=== PATIENT | male | born 1930 | race Caucasian/White ===

== ENCOUNTER 2018-08-13 06:26 | Inpatient (IN) | payer MEDICARE ==
[~2018-08-13] VITALS: Ht 185.4 cm; Wt 78.9 kg
[2018-08-13] MEDS ORDERED: SODIUM CHLORIDE 0.9% 1000ML 1,000 ML IV STA (06:29)
[2018-08-13] MEDS ORDERED: CEFTRIAXONE SOD 1 GM VIAL IV SCH (06:30)
[2018-08-13] MEDS: CEFTRIAXONE SOD 1 GM/NS 50 ML 50 ML IV SCH (06:57)
[2018-08-13 07:02] LABS: ALBUMIN/GLOBULIN RATIO 1.1 (0.8-2.0); ANION GAP 21.3 mmol/L (8-16); CALCIUM 9.9 mg/dL (8.4-10.2); CREATININE, SERUM 1.14 mg/dL (0.72-1.25); POTASSIUM 4.3 mmol/L (3.5-5.1)
[2018-08-13 07:08] LABS: CREATINE KINASE MB 5.2 ng/mL (0-5.0)
[2018-08-13] MEDS ORDERED: SODIUM CHLORIDE 0.9% 1000ML 1,000 ML ONE (07:09)
[2018-08-13 07:11] LABS: BASOPHILS # (AUTO) 0.1 (0.0-0.1); BASOPHILS % 0.2 % (0.0-1.0); EOSINOPHILS % 0.1 % (0.0-6.0); HEMATOCRIT 47.9 % (38.2-49.6); HEMOGLOBIN 15.9 g/dL (14.0-18.0); LYMPHOCYTES # (AUTO) 1.2 (1.0-3.2); LYMPHOCYTES % 5.5 % (18.0-39.1); MEAN CORPUSCULAR HEMOGLOBIN 29.6 pg (28-32); MEAN CORPUSCULAR HGB CONC 33.2 g/dL (31-35); MEAN CORPUSCULAR VOLUME 89.2 fL (81-99); MONOCYTES # (AUTO) 0.7 (0.2-0.8); MONOCYTES % 3.3 % (4.4-11.3); NEUTROPHILS # (AUTO) 19.7 (2.1-6.9); NEUTROPHILS % 90.3 % (38.7-80.0); PLATELET COUNT 294 x10e3/uL (140-360); RED BLOOD COUNT 5.37 x10e6/uL (4.3-5.7); RED CELL DISTRIBUTION WIDTH 13.5 % (11.7-14.4)
[2018-08-13] MEDS ORDERED: MORPHINE SULFATE INJ 4 MG/ML INJ IV ONE (07:15)
[2018-08-13] MEDS ORDERED: SODIUM CHLORIDE 0.9% 1000ML 1,000 ML IV ONE ×2 (07:15→08:45)
[2018-08-13] MEDS ORDERED: ONDANSETRON HCL INJ 2 MG/ML VIAL IV ONE (07:15)
[2018-08-13] MEDS ORDERED: LISINOPRIL2.5 MG PO (07:30)
[2018-08-13] MEDS ORDERED: TAMSULOSIN HCL0.4 MG PO (07:30)
[2018-08-13] MEDS ORDERED: FINASTERIDE5 MG PO (07:31)
[2018-08-13] MEDS ORDERED: METFORMIN HCL500 MG PO (07:31)
[2018-08-13] MEDS ORDERED: SPIRONOLACTONE25 MG PO (07:31)
[2018-08-13] MEDS ORDERED: ULTRAM 50MG50 MG PO (07:31)
[2018-08-13 08:20] LABS: CLARITY,URINE CLEAR (CLEAR); COLOR,URINE YELLOW (YELLOW); LEUKOCYTE ESTERASE ,URINE NEGATIVE (NEGATIVE); NITRITE,URINE NEGATIVE (NEGATIVE); PROTEIN,URINE DIPSTICK TRACE (NEGATIVE)
[2018-08-13 08:21] LABS: BILIRUBIN,URINE NEGATIVE (NEGATIVE); KETONES,URINE TRACE (NEGATIVE); URINE UROBILINOGEN 0.2 mg/dL (0.2 - 1)
[2018-08-13 08:39] LABS: BACTERIA,URINE MODERATE /HPF; EPITHELIAL CELLS,URINE RARE /LPF; YEAST,URINE RARE
[2018-08-13] MEDS: METRONIDAZOLE 500MG/NS 100ML 100 ML IV SCH ×3 (09:11→22:00)
--- NOTE | 2018-08-13 09:29 | Diagnostic Imaging Report ---
EXAM: CT Abdomen and Pelvis WITHOUT contrast INDICATION: ^llq pain ^[id number] ^[id number] COMPARISON: None. TECHNIQUE: Abdomen and pelvis were scanned utilizing a multidetector helical scanner from the lung base to the pubic symphysis without administration of IV contrast. Absence of intravenous contrast decreases sensitivity for detection of focal lesions and vascular pathology. Coronal and sagittal reformations were obtained. Routine protocol was performed. IV CONTRAST: None ORAL CONTRAST: Gastroview COMPLICATIONS: None RADIATION DOSE: Total DLP: 534.83 mGy*cm Estimated effective dose: (DLP x 0.015 x size factor) mSv CTDIvol has been reviewed. It is below the limits set by the Radiation Protocol Committee (RPC). FINDINGS: LINES and TUBES: Sagastume catheter in place. LOWER THORAX: Emphysematous changes of the lungs. 4 mm right base nodule (series 2, image 14). Mild diffuse bronchial wall thickening. Partially seen atherosclerotic calcification of coronary arteries. HEPATOBILIARY: Unenhanced liver is unremarkable. No biliary ductal dilation. GALLBLADDER: No radio-opaque stones or sludge. No wall thickening. SPLEEN: No splenomegaly. PANCREAS: No focal masses or ductal dilatation. ADRENALS: No adrenal nodules KIDNEYS/URETERS: No hydronephrosis. Multiple bilateral renal hypodensities cannot be characterized with certainty without intravenous contrast, however they show internal density of simple fluid and are probably cysts. The largest is in left superior pole measures 5.2 cm. No stones. GI TRACT: Small hiatal hernia. Oral contrast within distal esophagus, suggestive of gastroesophageal reflux. Stomach is distended with contrast and ingested material. Large ventral hernia (neck measuring at least 17 cm) with herniation of the part of the stomach and most of the bowel loops. There are multiple mildly dilated small bowel loops with air-fluid levels within the hernia sac (series 2, image 66) along with transition point (series 2, image 52) and some collapsed loops, within left hernia sac, suggestive of partial obstruction. There is seen within rectum and sigmoid colon. Appendix is not visualized with certainty. PELVIC ORGANS/BLADDER: Bladder is decompressed by a Sagastume catheter in place with a small pocket of intravesical air. Pelvic phleboliths. LYMPH NODES: No lymphadenopathy. Mild nonspecific sachin mesentery and prominent mesenteric lymph nodes. VESSELS: There is moderate atherosclerotic disease in the aorta and major arterial branches. PERITONEUM / RETROPERITONEUM: No free air or fluid. BONES: Generalized demineralization. L4 vertebral body compression deformity of indeterminate age. SOFT TISSUES: Small fat-containing left inguinal hernia. IMPRESSION: Limited study without intravenous contrast. 1. Large ventral hernia with herniation of the part of the distal stomach and most of the small and large bowel loops and evidence of at least partial small bowel obstruction. 2. Small hiatal hernia and gastroesophageal reflux. 3. L4 vertebral body compression deformity of indeterminate age. Signed by: Dr. Nicholas Velasquez MD on 08/13/2018 9:26 AM
[2018-08-13] MEDS ORDERED: BENZOCAINE/TETRACAINE/BUTAMBEN AERO SPRAY 56 GM CAN TOP ONE (09:45)
--- NOTE | 2018-08-13 10:26 | NUR ---
I spoke to Dr Bo and Dr Ezequiel Patel (surgery)
[2018-08-13] MEDS ORDERED: DEXTROSE 50% SYRINGE 50 ML IV PRN (10:45)
[2018-08-13] MEDS: PIPER-TAZ 3.375 GM 50 ML IV SCH ×3 (10:51→22:52)
--- OUTSIDE RECORDS SUMMARY | 2018-08-13 11:08 | XMS REPORT ---
Author Author [facility] Address Unknown Phone Unavailable Care Team Providers Care Financial Report Service Sales Agent Name Role Phone Alcon STEINER Unavailable Unavailable Problems This patient has no known problems. Allergies, Adverse Reactions, Alerts This patient has no known allergies or adverse reactions. Medications This patient has no known medications. Results Test Description Test Time Test Comments Text Results Atomic Results Result Comments CT ABDOMEN/PELVIS WO 2018-08-13 08:52:00 [place] [address] Patient Name: CATRACHITA EVANS MR #: [id number] : 1930 Age/Sex: 87/M Req #: [id number] Adm Physician: Ordered by: KAZ URRUTIA MD Report #: [id number] Location: ER Room/Bed: Procedure: [id number] CT/CT ABDOMEN/PELVIS WO Exam Date: 08/13/18 Exam Time: 818 REPORT STATUS: Signed EXAM: CT Abdomen and Pelvis WITHOUT contrast RAMA CATION: llq pain [id number] COMPARISON: None. TECHNIQUE: Abdomen and pelvis were scanned utilizing a multidetector helical scanner from the lung base to the pubic symphysis without administration of IV contrast. Absence of intravenous contrast decreases sensitivity for detection of focal lesions and vascular pathology. Coronal and sagittal reformations were obtained. Routine protocol was performed. IV CONTRAST: None ORAL CONTRAST: Gastroview COMPLICATIONS: None RADIATION DOSE: Total DLP: 534.83 mGy*cm Estimated effective dose: (DLP x 0.015 x size factor) mSv CTDIvol has been reviewed. It is below the limits set by the Radiation Protocol Committee (RPC). FINDINGS: LINES and TUBES: Sagastume catheter in place. LOWER THORAX: Emphysematous changes of the lungs. 4 mm right base nodule (series 2, image 14). Mild diffuse bronchial wall thickening. Partially seen atherosclerotic calcification of coronary arteries. HEPATOBILIARY: Unenhanced liver is unremarkable. No biliary ductal dilation. GALLBLADDER: No radio-opaque stones or sludge. No wall thickening. SPLEEN: No splenomegaly. PANCREAS: No focal masses or ductal dilatation. ADRENALS: No adrenal nodules KIDNEYS/URETERS: No hydronephrosis. Multiple bilateral renal hypodensities cannot be characte rized with certainty without intravenous contrast, however they show internal density of simple fluid and are probably cysts. The largest is in left superior pole measures 5.2 cm. No stones. GI TRACT: Small hiatal hernia. Oral contrast within distal esophagus, suggestive of gastroesophageal reflux. Stomach is distended with contrast and ingested material. Large ventral hernia (neck measuring at least 17 cm) with herniation of the part of the stomach and most of the bowel loops. There are multiple mildly dilated small bowel loops with air-fluid levels within the hernia sac (series 2, image 66) along with transition point (series 2, image 52) and some collapsed loops, within left hernia sac, suggestive of partial obstruction. There is seen within rectum and sigmoid colon. Appendix is not visualized with certainty. PELVIC ORGANS/BLADDER: Bladder is decompressed by a Sagastume catheter in place with a small pocket of intravesical air. Pelvic phleboliths. LYMPH NODES: No lymphadenopathy. Mild nonspecific sachin mesentery and prominent mesenteric lymph nodes. VESSELS: There is moderate atherosclerotic disease in the aorta and major arterial branches. PERITONEUM / RETROPERITONEUM: No free air or fluid. BONES: Generalized demineralization. L4 vertebral body compression deformity of indeterminate age. SOFT TISSUES: Small fat- containing left inguinal hernia. IMPRESSION: Limited study without intravenous contrast. 1. Large ventral hernia with herniation of the part of the distal stomach and most of the small and large bowel loops and evidence of at least partial small bowel obstruction. 2. Small hiatal hernia and gastroesophageal reflux. 3. L4 vertebral body compression deformity of indeterminate age. Signed by: Dr. Nicholas Haynes MD on 08/13/2018 9:26 AM Dictated By: NICHOLAS HAYNES MD 5 Transcribed By: OPAL on 08/13/18925 COPY TO: KAZ URRUTIA MD
[2018-08-13] MEDS ORDERED: PANTOPRAZOLE 40 MG 10ML VIAL IV ONE (11:30)
[2018-08-13] MEDS: INSULIN LISPRO 100 UNIT/1 ML 3ML VIAL SQ SCH ×3 (11:31→21:00)
[2018-08-13] MEDS: SODIUM CHLORIDE 0.9% 1000ML 1,000 ML IV SCH ×2 (11:53→22:10)
--- NOTE | 2018-08-13 12:15 | NUR ---
Sagastume catheter removed at this time. Patient refused to continue to have catheter. notified.
[2018-08-13] MEDS: MORPHINE SULFATE INJ 4 MG/ML INJ IV PRN ×2 (13:19→22:11)
[2018-08-13] MEDS: ONDANSETRON HCL INJ 2 MG/ML VIAL IV PRN (13:19)
--- NOTE | 2018-08-13 14:33 | NUR ---
Received patient via stretcher. Accompanied by daughter.AAOX3 to time, person, place. Respirations even and unlabored. tele 2440 afib. Left nare NG tube placed on intermittent suction as ordered. Oriented patient to room. Instructed to use call light for assistance. Voiced understanding.
[2018-08-13 15:00] VITALS: BP 123/75
[2018-08-13 15:15] VITALS: BP 132/66
[2018-08-13] MEDS ORDERED: TOLNAFTATE TOP (15:18)
[2018-08-13 15:19] VITALS: BP 132/66
--- NOTE | 2018-08-13 15:30 | NUR ---
Patient aware of harper orders. Patient refuses harper and states "I've been using the urinal fine"
--- NOTE | 2018-08-13 15:45 | NUR ---
Jose Jalloh aware of consult
--- NOTE | 2018-08-13 16:17 | NUR ---
Dr. Bo aware of admission. Aware of WBC 21.81. No new orders at this time
[2018-08-13] MEDS ORDERED: PNEUMOCOCCAL VACCINE POLYVALENT 23 MCG/0.5 ML VIAL IM NR (17:00)
[2018-08-13 17:17] LABS: CREATINE KINASE 81 IU/L (30-200)
--- NOTE | 2018-08-13 18:00 | NUR ---
Patient's son states "My sister Maddy took my dad's hearing aids home. I dont know if she will bring them tomorrow"
[2018-08-13 18:21] VITALS: BP 113/61
--- NOTE | 2018-08-13 19:20 | NUR ---
Report given to oncoming nurse. No s/s of acute distress noted
[2018-08-13 20:00] VITALS: BP 97/55
--- NOTE | 2018-08-13 22:12 | NUR ---
PATIENT C/O PAIN TO THE LEFT HIP AND BACK WITH PAIN SCORE #7, MEDICATED WITH MORPHINE ORDERED. REPOSITION ON THE RIGHT SIDE, HEAD OF BED ELEVATED AND CALL LIGHT WITHIN EASY REACH.
[2018-08-14] VITALS (7 sets, daily range): BP systolic 94–114; BP diastolic 55–68
--- NOTE | 2018-08-14 01:43 | NUR ---
PATIENT IS ASLEEP, HE'S EASY TO AROUSE. NO RESPIRATORY DISTRESS OBSERVED, NG TUBE INTACT AND CONNECTED TO LOW WALL SUCTION. BED ALARM ON, CALL LIGHT AND URINAL IN EASY REACH.
[2018-08-14] MEDS: SODIUM CHLORIDE 0.9% 1000ML 1,000 ML IV SCH ×4 (02:41→20:31)
[2018-08-14] MEDS: METRONIDAZOLE 500MG/NS 100ML 100 ML IV SCH ×4 (03:10→20:40)
--- NOTE | 2018-08-14 03:11 | NUR ---
PATIENT REPOSITION FOR COMFORT, HE DENIES ABDOMINAL PAIN. CALL LIGHT AND URINAL WITHIN EASY REACH.
[2018-08-14] MEDS: PIPER-TAZ 3.375 GM 50 ML IV SCH ×4 (04:54→22:45)
[2018-08-14] MEDS: MORPHINE SULFATE INJ 4 MG/ML INJ IV PRN ×3 (05:06→20:41)
--- NOTE | 2018-08-14 05:07 | NUR ---
PATIENT C/O PAIN TO THE ABDOMEN WITH PAIN SCORE #5, MEDICATED WITH MORPHINE ORDERED. ASSISTED WITH ADLS, REPOSITION FOR COMFORT. CALL LIGHT AND URINAL WITHIN EASY REACH.
[2018-08-14 06:02] LABS: CREATINE KINASE 76 IU/L (30-200)
[2018-08-14 06:16] LABS: ALANINE AMINOTRANSFERASE 8 IU/L (0-55); ALBUMIN 2.6 g/dL (3.5-5.0); ALKALINE PHOSPHATASE 61 IU/L (40-150); BLOOD UREA NITROGEN 8 mg/dL (7-26); BUN/CREATININE RATIO 10 (6-25); CALCIUM 7.9 mg/dL (8.4-10.2); CARBON DIOXIDE 22 mmol/L (22-29); CHLORIDE 103 mmol/L (98-107); CREATININE, SERUM 0.81 mg/dL (0.72-1.25); EST GLOMERULAR FILTRATION RATE > 60 ML/MIN (60-); GLUCOSE 110 mg/dL (74-118); SODIUM 134 mmol/L (136-145)
[2018-08-14] MEDS: INSULIN LISPRO 100 UNIT/1 ML 3ML VIAL SQ SCH ×4 (07:30→21:00)
[2018-08-14 08:26] LABS: BASOPHILS % 0.4 % (0.0-1.0); EOSINOPHILS # (AUTO) 0.4 (0.0-0.4); EOSINOPHILS % 3.2 % (0.0-6.0); HEMATOCRIT 37.4 % (38.2-49.6); HEMOGLOBIN 11.9 g/dL (14.0-18.0); LYMPHOCYTES # (AUTO) 1.1 (1.0-3.2); LYMPHOCYTES % 10.3 % (18.0-39.1); MEAN CORPUSCULAR HEMOGLOBIN 29.6 pg (28-32); MEAN CORPUSCULAR HGB CONC 31.8 g/dL (31-35); MONOCYTES # (AUTO) 0.7 (0.2-0.8); MONOCYTES % 6.5 % (4.4-11.3); NEUTROPHILS # (AUTO) 8.6 (2.1-6.9); NEUTROPHILS % 79.2 % (38.7-80.0); PLATELET COUNT 174 x10e3/uL (140-360); RED BLOOD COUNT 4.02 x10e6/uL (4.3-5.7); RED CELL DISTRIBUTION WIDTH 14.1 % (11.7-14.4)
[2018-08-14] MEDS: PANTOPRAZOLE 40 MG 10ML VIAL IV SCH (10:00)
[2018-08-14 10:48] LABS: CHOL/HDL RATIO 3.3 (3.9-4.7)
--- NOTE | 2018-08-14 11:21 | NUR ---
MD SANCHEZ INTO SEE PT, DISCUSSED POC, ORDERS NOTED
[2018-08-14] MEDS: CEFTRIAXONE SOD 1 GM/NS 50 ML 50 ML IV SCH (12:28)
--- NOTE | 2018-08-14 12:43 | NUR ---
NICOLE XREMETERIO COMPLETED PER MD ORDER
--- NOTE | 2018-08-14 13:07 | NUR ---
WITH STANDBY ASSIST, PT OOB TO BS COMMODE, CALL LIGHT WITHIN REACH
--- NOTE | 2018-08-14 13:24 | Diagnostic Imaging Report ---
EXAM: Abdomen 2 Views INDICATION: ^small bowel obstruction ^[id number] ^[id number] COMPARISON: CT dated 08/13/2018 FINDINGS: Nasogastric tube in place with tip overlying proximal stomach. The side-port is probably above the gastroesophageal junction. Recommend advancement. Mild to moderate gaseous distention of small bowel loops are again seen which might be slightly decreased when compared to prior CT. Oral contrast from prior CT is seen within colon on today's exam. No acute osseous abnormality. Degenerative changes of spine and L4 vertebral body compression deformity are again seen. Lung bases are unremarkable. IMPRESSION: 1. Recommend advancement of nasogastric tube. 2. Mild to moderate gaseous distention of small bowel loops are again seen, which appear slightly decreased when compared to prior CT. Also there is contrast from prior CT within colon. Signed by: Dr. Nicholas Velasquez MD on 08/14/2018 1:20 PM
[2018-08-14 14:21] LABS: CREATINE KINASE 102 IU/L (30-200)
--- NOTE | 2018-08-14 14:26 | NUR ---
CASE MANAGEMENT INITIAL ASSESSMENT Nail Expert to bedside to discuss plan of care with patient/family. CM/SW role and care transitions discussed. Anticipated discharge plan discussed along with duration of care. CM/SW discussed patients right to make decisions in care. CM/SW work hours given. Patient lives: IN OWN HOUSE WITH DAUGHTER Admit/Transfer: VIA ED FROM HOME POA/Emergency contact: ISAIAS PENNY [phone] Current/Previous Home Health: NONE PCP/Follow-up Care: DAYLIN Current/Previous DME: ANNABELLA Other Services: NONE Employment Status: RETIRED Areas of Concerns: NONE Referral Needs: NONE Education Needs: NONE IMM/LAZARO given and signed (if applicable): NA Goal for discharge: RETURN HOME INDEPENDENTLY CM/SW left business card at the bedside with contact information. Name and number was also written on the patients whiteboard. Patient verbalized understanding of discussion. CM will follow-up with ongoing discharge and transition of care needs.
--- NOTE | 2018-08-14 15:52 | Consultation ---
DATE OF CONSULTATION: August 14, 2018 REFERRING PHYSICIAN: Dr. Yan Bo. HISTORY OF PRESENT ILLNESS: Patient is an [id number]-old male who came to the emergent room with complaints of abdominal pain with constipation, nausea, and vomiting. He says the pain started 2 days ago, but he says it is better now. Pain is much less. He says he is passing flatus. He had evaluation. CT of the abdomen showed a large ventral hernia with dilated bowel suggested partial intestinal obstruction. Patient had surgery 15 years ago for intestinal obstruction apparently with complications after the second procedure. He denies any abdominal pain at this time. PAST MEDICAL HISTORY: Significant for hypertension, diabetes, hyperlipidemia, chronic obstructive pulmonary disease, history of asbestosis. PAST SURGICAL HISTORY: Include partial colon resection as well as repair of abdominal hernia, previous prostate surgery. MEDICATIONS: At home were finasteride, lisinopril, metformin, spironolactone, tamsulosin, and tramadol. ALLERGIES: HE HAS ALLERGIES TO IODINE. FAMILY HISTORY: Noncontributory. SOCIAL HISTORY: The patient is a former smoker. Does not smoke now and does not drink alcohol. REVIEW OF SYSTEMS: Limited, but is as in history of present illness. PHYSICAL EXAMINATION GENERAL: The patient is awake and alert, in no distress. VITAL SIGNS: Normal. He is not tachycardic. HEENT: Reveals no scleral icterus. NECK: Has no masses. LUNGS: Equal breath sounds are clear bilaterally. CARDIAC: Regular rate and rhythm. No murmur. ABDOMEN: Has a large hernia in the midline, but is soft. There is no tenderness. Hernia is partially reducible. There is no organomegaly. EXTREMITIES: No edema. NEUROLOGIC: Grossly intact. LABORATORY TESTS: The white blood cell count was 21,000 yesterday, repeat is 10.8 today. Hemoglobin and hematocrit are normal. Chemistries are essentially normal. Lactic acid level was elevated on admission, but repeat is normal. ASSESSMENT AND PLAN: This is an 87-year-old male who has partial small bowel obstruction, seemed to be resolving in repeat abdominal x-ray today. There are no signs of peritonitis, no signs of ischemic bowel. At this time, no findings that warrant immediate surgical intervention. Hopefully, his obstruction will resolve without requiring any surgical intervention. Thank you for asking me to see Mr. Loera. Job#: [id number] JUANY
--- NOTE | 2018-08-14 16:28 | NUR ---
TELEPHONED MD SANCHEZ TO MAKE AWARE OF ABD XRAY, SPOKE WITH JAQUELINE, AWAITING CALL BACK
--- NOTE | 2018-08-14 16:28 | NUR ---
MD MAHAN INTO SEE PT, DISCUSSED POC
--- NOTE | 2018-08-14 16:33 | NUR ---
SPOKE WITH MD SANCHEZ , ORDERS NOTED
[2018-08-14] MEDS: TAMSULOSIN HCL 0.4 MG CAP PO SCH (17:00)
--- NOTE | 2018-08-14 17:06 | History and Physical ---
PRIMARY CARE PHYSICIAN: Dr. Stephen Taylor. CHIEF COMPLAINT: Nausea, vomiting, and abdominal pain. HISTORY OF PRESENT ILLNESS: This is an 87-year-old man with a history of small bowel obstruction in 2002, status post surgical management in September and June of that year, now developing nausea and vomiting with left-sided abdominal pain. He came to the hospital, found to have bowel obstruction. He is admitted for further evaluation and management. All his history have been obtained from the patient's daughter at bedside. PAST MEDICAL HISTORY: Diabetes mellitus, hypertension, cigarette use, small bowel obstruction in 2002 status post surgical management in September and June of that year, BPH, asbestosis, ambulatory dysfunction requiring walker, diabetes mellitus type 2. PAST SURGICAL HISTORY: Small bowel obstruction related surgery x2 in 2002. ALLERGIES: PER ELECTRONIC MEDICAL RECORD. FAMILY AND SOCIAL HISTORY: Patient is . He quit cigarettes. He continued to chew tobacco. MEDICATIONS: Per electronic medical record. REVIEW OF SYSTEMS: Denies any chest pain, shortness of breath, fever, chills, sweats, headache, vision changes, leg pain, and back pain. PHYSICAL EXAMINATION VITAL SIGNS: Reviewed. GENERAL: A tired-appearing man, resting in bed. HEENT: Anicteric. He has NG tube in place. CARDIOVASCULAR: Normal S1 and S2. LUNGS: Moderate breath sounds. ABDOMEN: Soft, nondistended. He has no tenderness on palpation. He has hypoactive bowel sounds. EXTREMITIES: No edema or calf tenderness. NEUROLOGIC: Alert and oriented x3, moving all extremities. SKIN: Dry. PSYCHIATRIC: Normal affect. LABS: Reviewed. MEDICATIONS: Reviewed. ASSESSMENT: This is an 87-year-old man with: 1. Small bowel obstruction. 2. Sepsis. 3. Urinary tract infection. 4. Hypertension. 5. Benign prostatic hypertrophy. 6. Hyponatremia. 7. Diabetes mellitus type 2. PLAN 1. NG tube and n.p.o. status. 2. IV fluids. 3. Ambulate the patient regular. 4. Optimize electrolytes. 5. Broad spectrum antibiotic coverage. 6. Monitor closely. 7. We used Lovenox and PPI. 8. Disposition: Continue Flagyl and Zosyn. Job#: [id number] JOSE
--- NOTE | 2018-08-14 17:15 | NUR ---
WITH STANDBY ASSIST, PT AMBULATED TO BR, ATTEMPTED BM, NOTHING NOTED, PT REPORTS PASSING FLATUS
[2018-08-14] MEDS: ENOXAPARIN SOD INJ 40 MG/0.4 ML SYR SC SCH (17:23)
--- NOTE | 2018-08-14 17:24 | NUR ---
NGT REMOVED PER MD ORDER, PT AWARE THAT HE IS NPO UNTIL MD SANCHEZ OKAYS ANY PO INTAKE, PT VERBALIZED UNDERSTANDING, WITH STANDBY ASSIST, PT OOB , AMBULATED IN HALLWAY WITH USE OF WALKER, NURSE AT SIDE, TOLERATED WELL
--- NOTE | 2018-08-14 20:37 | NUR ---
PATIENT AMBULATED WITH ROLLING WALKER AND THE PRIMARY NURSE AT HIS SIDE FROM HIS ROOM TO THE NURSES STATION AND HE'S NOW BACK IN BED. HE WAS ASSISTED TO THE REST ROOM TO VOID, NO BOWEL MOVEMENT NOTED. IV INFILTRATED, IV REMOVED WITH TIP INTACT. IV #20 GAUGE INSERTED TO THE RIGHT WRIST, PATIENT TOLERATED PROCEDURE WELL. HE C/O PAIN TO THE LEFT HIP WITH PAIN SCORE #7, MEDICATED WITH MORPHINE AND ZOFRAN ORDERED. BED ALARM ON, CALL LIGHT WITHIN EASY REACH.
[2018-08-14] MEDS: ONDANSETRON HCL INJ 2 MG/ML VIAL IV PRN (20:41)
[2018-08-15] VITALS (8 sets, daily range): BP systolic 102–140; BP diastolic 55–72
--- NOTE | 2018-08-15 00:13 | NUR ---
PATIENT ASSISTED TO THE RESTROOM, HE'S NOW BACK IN BED WITHOUT ACUTE DISTRESS. CALL LIGHT IN EASY REACH, INSTRUCTED TO CALL FOR ASSISTANCE NEEDED.
[2018-08-15] MEDS: METRONIDAZOLE 500MG/NS 100ML 100 ML IV SCH ×4 (02:05→20:45)
[2018-08-15] MEDS: MORPHINE SULFATE INJ 4 MG/ML INJ IV PRN ×3 (02:05→19:06)
--- NOTE | 2018-08-15 02:10 | NUR ---
PATIENT ASSISTED TO THE RESTROOM AND HE AMBULATED IN THE [place] WITH ROLLING WALKER. HE NOW BACK IN THE BED AND HE C/O PAIN TO THE LEFT HIP. MEDICATED WITH MORPHINE AND ZOFRAN ORDERED, BED ALARM ON, CALL LIGHT WITHIN EASY REACH.
[2018-08-15] MEDS: PIPER-TAZ 3.375 GM 50 ML IV SCH ×4 (04:19→21:45)
--- NOTE | 2018-08-15 06:27 | NUR ---
IM- progress note O/N; NGT removed REVIEW OF SYSTEMS: Denies any chest pain, shortness of breath, fever, chills, sweats, headache, vision changes, leg pain, and back pain. PHYSICAL EXAMINATION VITAL SIGNS: Reviewed. GENERAL: A tired-appearing man, resting in bed. HEENT: Anicteric. NGT removed; CARDIOVASCULAR: Normal S1 and S2. LUNGS: Moderate breath sounds. ABDOMEN: Soft, nondistended. He has no tenderness on palpation. He has hypoactive bowel sounds. EXTREMITIES: No edema or calf tenderness. NEUROLOGIC: Alert and oriented x3, moving all extremities. SKIN: Dry. PSYCHIATRIC: Normal affect. LABS: Reviewed. MEDICATIONS: Reviewed. ASSESSMENT: This is an 87-year-old man with: 1. Small bowel obstruction. 2. Sepsis. 3. Urinary tract infection. 4. Hypertension. 5. Benign prostatic hypertrophy. 6. Hyponatremia. 7. Diabetes mellitus type 2. PLAN 1. NG tube and n.p.o. status. 2. IV fluids. 3. Ambulate the patient regular. 4. Optimize electrolytes. 5. Broad spectrum antibiotic coverage. 6. Monitor closely. 7. We used Lovenox and PPI. 8. Disposition: Continue Flagyl and Zosyn. 08/15 Hba1c/LDL 6.3. leukocytosis improving; cont suppotive care; ambulate QID. check electrolytes; NGT is out; add bowel regimen; Yan Bo MD, PhD.
[2018-08-15] MEDS: INSULIN LISPRO 100 UNIT/1 ML 3ML VIAL SQ SCH ×4 (07:30→21:45)
[2018-08-15 07:59] LABS: MAGNESIUM 1.8 MG/DL (1.3-2.1); PHOSPHORUS 2.6 MG/DL (2.3-4.7); POTASSIUM 3.8 mmol/L (3.5-5.1)
[2018-08-15] MEDS: CEFTRIAXONE SOD 1 GM/NS 50 ML 50 ML IV SCH (08:30)
[2018-08-15] MEDS: PANTOPRAZOLE 40 MG 10ML VIAL IV SCH (09:00)
[2018-08-15] MEDS: LISINOPRIL 2.5 MG TAB PO SCH (09:00)
[2018-08-15] MEDS: TAMSULOSIN HCL 0.4 MG CAP PO SCH ×2 (09:00→20:45)
[2018-08-15] MEDS ORDERED: DOCUSATE SODIUM 100 MG CAP PO SCH (09:00)
[2018-08-15] MEDS: SENNOSIDES 8.6 MG TAB PO SCH ×3 (09:00→20:56)
[2018-08-15] MEDS: FINASTERIDE 5 MG TAB PO SCH (09:00)
--- NOTE | 2018-08-15 10:14 | NUR ---
AMBULATING IN HALLWAY, STEADY GAIT, FAMILY AT SIDE
[2018-08-15] MEDS: SODIUM CHLORIDE 0.9% 1000ML 1,000 ML IV SCH ×2 (10:41→18:41)
--- NOTE | 2018-08-15 10:56 | NUR ---
MD SANCHEZ INTO SEE PT, DISCUSSED POC
[2018-08-15] MEDS ORDERED: NEOMYCIN/POLYMYX/BACITR OINT 0.9 GM PKT ONE (12:25)
--- NOTE | 2018-08-15 12:33 | NUR ---
TOLERATING CLEAR LIQUIDS AT THIS TIME, PT REMOVED DRESSING FROM "BLOOD DRAWING", TOP LAYER OF SKIN REMOVED, CLEANSED, NEOSPORIN APPLIED, TELFA SECURED WITH KERLIX, PT TOLERATED WELL
[2018-08-15] MEDS ORDERED: NEOMYCIN/POLYMYXIN/BACITRACIN 15 GM TUBE TOP PRN (12:45)
[2018-08-15] MEDS: DOCUSATE SODIUM 100 MG CAP PO SCH ×2 (13:30→20:45)
--- NOTE | 2018-08-15 14:20 | NUR ---
WITH STANDBY ASSIST, PT AMBULATED IN HALLWAY, STAND BY ASSIST TO BR, LARGE BM NOTED, STANDBY ASSIST BACK TO BED, CALL LIGHT WITHIN REACH
[2018-08-15] MEDS: ENOXAPARIN SOD INJ 40 MG/0.4 ML SYR SC SCH (17:00)
--- NOTE | 2018-08-15 17:15 | NUR ---
WITH STANDBY ASSIST, PT OOB TO BR, LARGE BM NOTED , STAND BY ASSIST BACK TO BED, CALL LIGHT WITHIN REACH
--- NOTE | 2018-08-15 19:15 | NUR ---
WALKING ROUNDS PERFORMED, RECEIVED PT LAYING SEMI FOWLERS IN BED, AAOX3, RR EVEN AND NON-LABORED, ON RA. NO S/SX OF DISTRESS NOTED. LEFT PT LAYING SEMI FOWLERS IN BED, BED IN LOW LOCKED POSITION, SIDE RAILS UPX2, CALL LIGHT AND PHONE WITHIN REACH.
[2018-08-16] VITALS (7 sets, daily range): BP systolic 135–155; BP diastolic 65–78
[2018-08-16] MEDS: MORPHINE SULFATE INJ 4 MG/ML INJ IV PRN ×4 (00:50→20:40)
[2018-08-16] MEDS: METRONIDAZOLE 500MG/NS 100ML 100 ML IV SCH ×4 (03:18→20:39)
[2018-08-16] MEDS: SODIUM CHLORIDE 0.9% 1000ML 1,000 ML IV SCH (03:18)
[2018-08-16] MEDS: PIPER-TAZ 3.375 GM 50 ML IV SCH ×4 (04:40→22:25)
[2018-08-16] MEDS: CEFTRIAXONE SOD 1 GM/NS 50 ML 50 ML IV SCH (06:54)
[2018-08-16] MEDS: INSULIN LISPRO 100 UNIT/1 ML 3ML VIAL SQ SCH ×4 (07:30→22:09)
[2018-08-16] MEDS: DOCUSATE SODIUM 100 MG CAP PO SCH ×2 (09:00→20:39)
[2018-08-16] MEDS: PANTOPRAZOLE 40 MG 10ML VIAL IV SCH (09:28)
[2018-08-16] MEDS: SENNOSIDES 8.6 MG TAB PO SCH ×2 (09:30→20:39)
[2018-08-16] MEDS: FINASTERIDE 5 MG TAB PO SCH (09:30)
[2018-08-16] MEDS: LISINOPRIL 2.5 MG TAB PO SCH (09:30)
[2018-08-16] MEDS: TAMSULOSIN HCL 0.4 MG CAP PO SCH ×2 (09:30→20:39)
[2018-08-16 13:53] LABS: BASOPHILS % 0.3 % (0.0-1.0); EOSINOPHILS # (AUTO) 0.1 (0.0-0.4); EOSINOPHILS % 1.1 % (0.0-6.0); HEMATOCRIT 37.5 % (38.2-49.6); HEMOGLOBIN 12.4 g/dL (14.0-18.0); LYMPHOCYTES # (AUTO) 0.7 (1.0-3.2); LYMPHOCYTES % 7.5 % (18.0-39.1); MEAN CORPUSCULAR HEMOGLOBIN 29.8 pg (28-32); MEAN CORPUSCULAR HGB CONC 33.1 g/dL (31-35); MEAN CORPUSCULAR VOLUME 90.1 fL (81-99); MONOCYTES # (AUTO) 0.6 (0.2-0.8); MONOCYTES % 6.6 % (4.4-11.3); NEUTROPHILS # (AUTO) 7.6 (2.1-6.9); NEUTROPHILS % 84.1 % (38.7-80.0); PLATELET COUNT 172 x10e3/uL (140-360); RED BLOOD COUNT 4.16 x10e6/uL (4.3-5.7); RED CELL DISTRIBUTION WIDTH 13.7 % (11.7-14.4)
[2018-08-16 14:16] LABS: ANION GAP 12.5 mmol/L (8-16); BLOOD UREA NITROGEN < 5 mg/dL (7-26); CALCIUM 8.1 mg/dL (8.4-10.2); CARBON DIOXIDE 24 mmol/L (22-29); CHLORIDE 98 mmol/L (98-107); CREATININE, SERUM 0.85 mg/dL (0.72-1.25); EST GLOMERULAR FILTRATION RATE > 60 ML/MIN (60-); GLUCOSE 138 mg/dL (74-118); MAGNESIUM 2.1 MG/DL (1.3-2.1); POTASSIUM 3.5 mmol/L (3.5-5.1); SODIUM 131 mmol/L (136-145)
[2018-08-16 14:17] LABS: BUN/CREATININE RATIO 6 (6-25)
[2018-08-16] MEDS: ENOXAPARIN SOD INJ 40 MG/0.4 ML SYR SC SCH (17:09)
[2018-08-16] MEDS ORDERED: FLAGYL500 MG PO (19:42)
[2018-08-16] MEDS ORDERED: COLACE100 M1 PO (19:42)
[2018-08-16] MEDS ORDERED: LEVAQUIN500 MG PO (19:42)
[2018-08-16] MEDS ORDERED: SENOKOT8.6 MG PO (19:42)
--- NOTE | 2018-08-16 19:44 | NUR ---
Discharge summary; Principal Dx: ASSESSMENT: This is an 87-year-old man with: 1. Small bowel obstruction. 2. Sepsis. 3. Urinary tract infection. 4. Hypertension. 5. Benign prostatic hypertrophy. 6. Hyponatremia. 7. Diabetes mellitus type 2. Secondary Dx: 1.:DM2 cc and HPI: refer to H&P Hospital course: ASSESSMENT: This is an 87-year-old man with: 1. Small bowel obstruction. 2. Sepsis. 3. Urinary tract infection. 4. Hypertension. 5. Benign prostatic hypertrophy. 6. Hyponatremia. 7. Diabetes mellitus type 2. PLAN 1. NG tube and n.p.o. status. 2. IV fluids. 3. Ambulate the patient regular. 4. Optimize electrolytes. 5. Broad spectrum antibiotic coverage. 6. Monitor closely. 7. We used Lovenox and PPI. 8. Disposition: Continue Flagyl and Zosyn. 08/15 Hba1c/LDL 6.3/48. leukocytosis improving; cont suppotive care; ambulate QID. check electrolytes; NGT is out; add bowel regimen; d.c location: home d/c meds; see MAR d/c time>35mins d./c condition; stable and improved f/u PCP 1 week Yan Bo MD, PhD.
--- NOTE | 2018-08-16 20:11 | NUR ---
PATIENT IS CLEARED FOR DISCHARGE FROM SURGICAL SIDE. 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 DR. MAHAN NOTIFIED AND OK WITH PATIENT HOLDING DISCHARGE FOR THE AM.
--- NOTE | 2018-08-16 20:40 | NUR ---
TELE BOX 2440 RETURNED TO TELEMETRY, PATIENT NOW ON TELE 2448 A. FIB
[2018-08-17] VITALS: BP 135/68
[2018-08-17 00:54] VITALS: BP 135/68
[2018-08-17] MEDS: METRONIDAZOLE 500MG/NS 100ML 100 ML IV SCH (03:32)
[2018-08-17 04:00] VITALS: BP 162/77
[2018-08-17] MEDS: PIPER-TAZ 3.375 GM 50 ML IV SCH (04:36)
--- NOTE | 2018-08-17 06:21 | NUR ---
Discharge summary; Principal Dx: ASSESSMENT: This is an 87-year-old man with: 1. Small bowel obstruction. 2. Sepsis. 3. Urinary tract infection. 4. Hypertension. 5. Benign prostatic hypertrophy. 6. Hyponatremia. 7. Diabetes mellitus type 2. Secondary Dx: 1.:DM2 cc and HPI: refer to H&P Hospital course: ASSESSMENT: This is an 87-year-old man with: 1. Small bowel obstruction. 2. Sepsis. 3. Urinary tract infection. 4. Hypertension. 5. Benign prostatic hypertrophy. 6. Hyponatremia. 7. Diabetes mellitus type 2. PLAN 1. NG tube and n.p.o. status. 2. IV fluids. 3. Ambulate the patient regular. 4. Optimize electrolytes. 5. Broad spectrum antibiotic coverage. 6. Monitor closely. 7. We used Lovenox and PPI. 8. Disposition: Continue Flagyl and Zosyn. 08/15 Hba1c/LDL 6.3/48. leukocytosis improving; cont suppotive care; ambulate QID. check electrolytes; NGT is out; add bowel regimen; 08/16 d/c home 08/17 remained in hospital extra night while family organize to take home; d.c location: home d/c meds; see MAR d/c time>35mins d./c condition; stable and improved f/u PCP 1 week Yan Bo MD, PhD.
[2018-08-17 07:53] VITALS: BP 171/82
[2018-08-17 08:00] VITALS: BP 158/79
== END 2018-08-17 09:16 | disposition home or self-care (01) | DRG 872 ==
LOC: ER 06:26 → ERHOLD 11:05 → MED/SURG 14:37
PROVIDERS: ADMIT Internal Medicine; ATTEND Internal Medicine
DX: A41.9 Sepsis, unspecified organism (principal); K56.609 Unspecified intestinal obstruction, unspecified as to partial versus complete obstruction; N39.0 Urinary tract infection, site not specified; E87.1 Hypo-osmolality and hyponatremia; I10 Essential (primary) hypertension; N40.0 Benign prostatic hyperplasia without lower urinary tract symptoms; E11.9 Type 2 diabetes mellitus without complications
CPT/HCPCS: 36415; 51700; 74019; 74176; 80048; 80053; 80061; 81001; 82550; 82553; 82948; 83036; 83605; 83690; 83735; 84100; 84132; 84484; 85025; 87040; 87086; 90732; 93005; 96367; 96376; 99284; J0696; J1650; J2270; J2405; J2543; J7030